=== PATIENT | female | born 1960 | race Caucasian/White ===

== ENCOUNTER → 2024-04-04 06:20 | Day surgery (SDC) | payer BC, SELFPAY | LOC: GI 06:20 | PROVIDERS: ATTENDING PHYSICIAN Internal Medicine Gastroenterology | DX: Z12.11 Encounter for screening for malignant neoplasm of colon (principal); K63.5 Polyp of colon; K57.30 Diverticulosis of large intestine without perforation or abscess without bleeding; Q43.8 Other specified congenital malformations of intestine; K64.8 Other hemorrhoids | CPT/HCPCS: 45385; 88305 ==

== ENCOUNTER → 2025-04-22 07:38 | Outpatient (REF) | payer MEDICARE, OTHER, SELFPAY | LOC: HWRAD 07:38 | PROVIDERS: ATTENDING PHYSICIAN Nurse Practitioner Adult Health | DX: Z78.0 Asymptomatic menopausal state (principal) | CPT/HCPCS: 77080 ==

== ENCOUNTER 2025-06-18 04:44 | Emergency (ER) | payer MEDICARE, OTHER, SELFPAY ==
[2025-06-18 04:50] VITALS: BP 120/72
[2025-06-18 05:17] LABS: Hematocrit 42.3 % (37.0-47.0); Hemoglobin 14.8 g/dL (12.0-16.0); Mean Corp Hgb Conc. 35.0 g/dL (33.0-37.0); Mean Corpuscular Volume 88.1 fL (81.0-99.0); Nucleated Red Blood Cells % 0 %; Platelet Count 218 10^3/uL (130-400); Red Cell Dist. Width 11.9 % (11.5-14.5)
[2025-06-18 05:45] LABS: ALT (SGPT) 34 U/L (0-35); AST (SGOT) 28 U/L (14-36); Albumin 4.5 g/dl (3.5-5.0); Alkaline Phosphatase 52 U/L (38-126); Blood Urea Nitrogen 12 mg/dl (7-17); Calcium 9.5 mg/dl (8.4-10.2); Carbon Dioxide 24 mmol/L (22-30); Chloride 103 mmol/L (98-107); Glucose 122 mg/dl (70-99); Lipase 55 U/L (23-300); Potassium 4.2 mmol/L (3.5-5.1); Sodium 135 mmol/L (135-145); Total Protein 7.0 g/dl (6.3-8.2); eGFR > 60.00
[2025-06-18 05:51] LABS: Urine Character Slightly Cloudy (Clear)
[2025-06-18 06:37] LABS: Urine Squamous Cell >30 /LPF (Few)
[2025-06-18 06:38] LABS: Urine Urothelial Cell 16-20 /LPF (FEW)
[2025-06-18 06:39] LABS: Urine White Cell 50-60 /HPF (0-5)
--- NOTE | 2025-06-18 08:23 | ED.GENMED ---
History of Present Illness
General
Chief Complaint: Abdominal Pain
Source: patient
Exam Limitations: none
Time Seen by Provider: 06/18/25 07:59
Nursing documentation reviewed up to this point in time: agreed with
History of Present Illness
History of Present Illness:
Patient presents to ED secondary to persistent abdominal pain with decreased appetite over the past 3 days. Abdominal pain described as sharp, with intermittent radiation to the back, worse when laying down, without any alleviating factors. Denies
trauma. Denies fever or chills. Denies nausea, vomiting, or diarrhea. Patient states that her daughter currently has similar symptoms, but with vomiting and diarrhea. Denies recent travel. Denies recent change in medications or diet. Denies
previous history of similar symptoms. Denies difficulty with urination.
Review of Systems
Review of Systems
Allergies reviewed?: Yes
All Other Systems: ROS reviewed and negative except as documented in HPI and ROS
Constitutional: Reports no symptoms; Denies fever or chills
Respiratory: Reports no symptoms; Denies cough
Cardiac: Reports no symptoms
ABD/GI: Reports abdominal pain; Denies vomiting or diarrhea
: Reports no symptoms
Musculoskeletal: Reports back pain
Skin: Reports no symptoms
Neurological: Reports no symptoms
Phy Exam
Physical Exam
Physical Exam:
Physical Exam
General: mild distress, not acutely ill. afebrile
Head: nc/at. eomi
Neck: supple. normal range of motion
Heart: s1/s2 regular rate and rhythm
Lungs: no acute respiratory distress. clear bilaterally
Abdomen: normal bowel sounds. mild vivien-umbilical/LLQ tenderness to palpation
Neuro: alert and oriented x 3. no focal neurological deficits
Skin: no rash
Psychiatric: well kept. interactive and cooperative
Extremities: no edema. no calf tenderness.
Course
Orders/Labs/Results
Orders:
Orders
06/18/25 04:57
IV Insert/Care/Rem.- Treatment PRN
06/18/25 05:01
Complete Blood Count/With Diff Urgent
Comprehensive Metabolic Panel Urgent
Lipase Urgent
06/18/25 05:32
Urinalysis Reflex To Culture Urgent
Date Specimen was Collected: 06/18/25
Time Specimen was Collected: 04:57
Urine Microscopic Reflex Cult Urgent
Urine Culture Urgent
JOSELINE Source: U
Specimen Description:
Date Specimen was Collected: 06/18/25
Time Specimen was Collected: 04:57
06/18/25 08:21
Iohexol [Omnipaque] See Protocol PO NOW STA
Ketorolac [Toradol] 15 mg IV NOW STA
Lorazepam [Ativan] 1 mg IV NOW STA
06/18/25 08:22
CT Abd/pel W Iv And Oral Contr Urgent
Comment:
Reason For Exam: periumbilical/LLQ pain
0.9% Sodium Chloride 1000 ml [Nss] 1,000 ml IV BOLUS
Pantoprazole [Protonix IV] 40 mg IV NOW STA
06/18/25 14:27
Influenza A+B Rapid Molecular Routine
JOSELINE Source: [facility]
Specimen Description:
Abnormal Lab Results
06/18/25 06/18/25
05:01 05:32
Absolute Lymphs (auto) 1.0 L 10^3/uL
(1.2-3.4)
Neutrophils % 79.3 H %
(42.2-75.2)
Lymphocytes % 14.7 L %
(20.5-51.1)
Glucose 122 H mg/dl
(70-99)
Urine Ketones 1+ A
(Negative)
Ur Occult Blood Reflex 3+ A
(Negative)
Leukocyte Esterase Rfl 3+ A
(Negative)
Urine RBC 3-6 A /HPF
(0-2)
Urine WBC (Reflex) 50-60 A /HPF
(0-5)
Urine Bacteria (Reflex) Many A
(Negative)
Urine Albumin (Reflex) 2+ A
(Neg - Trace)
06/18/25 05:01
06/18/25 05:01
Vital Signs
Initial and Last Documented VS:
Initial Vital Signs
Temp Pulse Resp BP Pulse Ox
98.3 F 72 20 120/72 100
06/18/25 04:50 06/18/25 04:50 06/18/25 04:50 06/18/25 04:50 06/18/25 04:50
Last Documented Vital Signs
Temp Pulse Resp BP Pulse Ox
98.1 F 68 14 117/61 99
06/18/25 09:11 06/18/25 11:00 06/18/25 11:00 06/18/25 11:00 06/18/25 11:00
MDM/Problems Addressed
MDM/Problems Addressed:
CT report reviewed and discussed with patient and spouse, including what appears to be benign gallbladder polyp, along with nonspecific inflammatory findings in her colon. History and exam consistent with likely nonspecific inflammation, secondary
to viral illness or food reaction or as a result of patient's motility disruption secondary to lack of sleep over the past 2 months. Nonetheless, patient is afebrile, hemodynamically stable, and reports significant improvement in symptoms after
treatment in ED. As such, after discussion, decision made to discharge patient home with supportive measures, i.e. bland diet, hydration, PPI, as well as PCP follow-up as an outpatient. Return precautions provided.
*Pulse Oximetry
SaO2: 100
Oxygen Mode of Delivery: Room air
Patient hypoxic: no
*Critical Care Note
Total Time (30-74mins, 75-104mins- exclusive of procedures): Not Applicable
ED Attending Note
-
Portions of this chart may have been created with voice recognition software.� Occasional wrong word or��sound alike� substitutions may have occurred due to the inherent limitations of voice recognition software.
Discharge Plan
Departure
Patient Disposition: Home (Routine Discharge)
Date of Disposition: 06/18/25
Time of Disposition: 12:41
Patient with high blood pressure during this ER visit?: No
Condition: Good
Discharge Problem:
Abdominal pain
Instructions: Abdominal Pain
Prescriptions:
New
dicyclomine 10 mg capsule
10 mg PO TID PRN (Reason: abdominal pain) Qty: 14 0RF
Referrals:
Vidhya Lara CRNP [Family Provider, General]
Activity Restrictions/Additional Instructions:
As discussed, please follow-up with your primary care physician for reevaluation, including discussion regarding CT report findings, i.e. gallbladder polyp, as well as your ongoing difficulty with sleep. Please consider return to ED with worsening
symptoms, i.e. fever/worsening pain/vomiting. Your prescription has been sent electronically to [facility] pharmacy on [address] in [place].
Interventions
Interventions:
*General Assessment Last Done: 06/18/25 04:50
*Neglect/Abuse Screening Last Done: 06/18/25 04:50
*ED COVID-19 Vaccine History Last Done: 06/18/25 04:50
*ED Influenza Vaccine History Last Done: 06/18/25 04:50
[facility] Fall Risk Assessment Tool Last Done: 06/18/25 09:10
*Risk Screen - Suicide (C-SSRS) Last Done: 06/18/25 04:50
*Nursing Disposition Last Done: 06/18/25 14:23
SV-Mhlvwz-Gczylxytna Assessment Last Done: 06/18/25 10:00
Discharge Date and Time
Discharge Date/Time: 06/18/25 14:23
Print Language: SAMI
[2025-06-18 09:07] VITALS: BP 132/67
[2025-06-18] MEDS: ATIVAN 1 MG IV (09:08)
[2025-06-18] MEDS: NSS 1000 IV (09:08)
[2025-06-18] MEDS: TORADOL 15 MG IV (09:09)
[2025-06-18] MEDS: OMNIPAQUE 50 ML PO (09:09)
[2025-06-18 09:10] VITALS: BMI 22.9
[2025-06-18] MEDS: PROTONIX IV 40 MG IV (09:10)
[2025-06-18 09:11] VITALS: BP 132/67
[2025-06-18 10:00] VITALS: BP 113/57
[2025-06-18 11:00] VITALS: BP 117/61
== END 2025-06-18 14:23 | disposition home or self-care (01) ==
LOC: EMR 04:44
PROVIDERS: Student in an Organized Health Care Education/Training Program; EMERGENCY PHYSICIAN Emergency Medicine; FAMILY PHYSICIAN Nurse Practitioner Adult Health
DX: R10.9 Unspecified abdominal pain (principal); K63.9 Disease of intestine, unspecified
CPT/HCPCS: 96374; 96375; 96361; 99284; 74177; 80053; 81003; 81015; 83690; 85025; 87086; Q9967